=== PATIENT | female | born 1970 | race Caucasian/White ===

== ENCOUNTER 2020-10-27 04:44 | Emergency (ER) | payer MEDICAID ==
[~2020-10-27] VITALS: Ht 170.2 cm; Wt 88.9 kg
[2020-10-27 04:46] VITALS: BP 118/76
[2020-10-27] MEDS ORDERED: TIROSINT125 MCG PO (05:00)
[2020-10-27] MEDS ORDERED: LISINOPRIL10 MG PO (05:00)
[2020-10-27] MEDS ORDERED: COREG3.125 MG PO (05:01)
== END 2020-10-27 05:17 | disposition home or self-care (01) ==
LOC: M.ERS 04:44
DX: F91.9 Conduct disorder, unspecified (principal); F99 Mental disorder, not otherwise specified; Z88.0 Allergy status to penicillin